=== PATIENT | male | born 1960 | race Caucasian/White ===

== ENCOUNTER → 2020-05-04 | Outpatient (CLI) | payer BC ==
[~2020-05-04] MED LIST: LORTAB 7.5/5001 TA1 PO; NORCO 5-325 TA1 EAC2 PO; PROCTO-MED HC30 GM TOP; TRELEGY ELLIPT1 EACH INH
== END ==
LOC: M.LAB 15:31
PROVIDERS: ATTEND Surgery
DX: Z01.812 Encounter for preprocedural laboratory examination (principal); Z20.828 Contact with and (suspected) exposure to other viral communicable diseases

== ENCOUNTER → 2020-05-10 | Day surgery (SDC) | payer BC ==
--- NOTE | ~2020-05-10 | OP ---
[facility] [address] [place] [address] OPERATIVE REPORT Name: CHISHOLMRU Jazmin Room: [facility]#: [id number] Admission: 05/10/20 Attend Phys: Brendan Friend Discharge: Date of : 64 Report #: [id number] THIS REPORT FOR: //name// cc: Hallie Wang Sarah Anne FNP ~ CC: Brendan Wang DATE OF SERVICE: 05/10/2020 PREOPERATIVE DIAGNOSIS: Internal and external hemorrhoids. POSTOPERATIVE DIAGNOSIS: Internal and external hemorrhoids. OPERATION: Excision of internal and external hemorrhoids, two columns. SURGEON: Brendan Friend MD ANESTHESIA: General. ESTIMATED BLOOD LOSS: Minimal. SPECIMEN: Internal and external hemorrhoids. DESCRIPTION OF PROCEDURE: After informed consent was obtained, the patient was brought to the operating room and placed supine. SCDs were placed and working, preoperative antibiotics were administered, general anesthesia was induced. The patient was placed in the dorsal lithotomy position. Digital rectal exam was performed. This demonstrated internal and external hemorrhoids. He had two large columns, one on the left side and one on the right side. These were grasped and the base was then ligated using the LigaSure device. There was excellent hemostasis on both sides. The area was then instilled with 30 mL of 0.5% Marcaine plain. The anus was packed with Gelfoam and dressed with gauze and an undergarment. COMPLICATIONS: None. DISPOSITION: The patient was taken to recovery in satisfactory condition. By: [id number] Friend MD /nt
--- NOTE | 2020-05-12 17:06 | PATH ---
[address] [address] PATHOLOGY RPT PROCEDURE Name: MICHEL CHISHOLM Room: [facility]#: [id number] Admission: 05/10/20 Date of : 64 Discharge: Report #: [id number] Path Case #: [id number] [facility] Accession Number: [id number] . 01 Material submitted: . hemorrhoids - HEMORRHOIDS . 02 Diagnosis: Hemorrhoids: - Benign skin and colonic mucosa with prominent hemorrhoids showing organizing thrombosis. (PAT/db; 05/12/2020) LBQ 05/12/2020 155 Local . 02 Electronically signed: . Maximus Roque MD, Pathologist NPI- [id number] . 01 Gross description: . The specimen is received in formalin, labeled "Michel Chisholm", "hemorrhoids". Received are 2 segments of wrinkled, pale metcalf-hickey skin and soft tissue, measuring 4.5 and 4.2 cm. Section reveals a hemorrhagic, glistening dark pink-hickey cut surface with no distinct solid masses or nodules identified. A fraud representative section from each segment is submitted in cassette A1.(SNA; 05/11/2020) LETITIA/CIRILO 05/12/2020 1553 Local . 02 Pathologist provided ICD-10: K64.9, I82.90 . 02 CPT . 516283 Specimen Comment: A courtesy copy of this report has been sent to [phone], [phone] Specimen Comment: [phone] Specimen Comment: Report sent to / DR MANUEL Performed at: [address] [facility], [place], [place] [id number] MD Navjot Brandt MD Phone: [phone] Performed at: [address] [facility] [address], [place], [place] [id number] MD Maximus Roque MD Phone: [phone]
== END | disposition home or self-care (01) ==
LOC: M.SUR 06:07
PROVIDERS: ATTEND Surgery
DX: K64.4 Residual hemorrhoidal skin tags (principal); I82.90 Acute embolism and thrombosis of unspecified vein; Z79.899 Other long term (current) drug therapy; Z88.8 Allergy status to other drugs, medicaments and biological substances; Z98.890 Other specified postprocedural states